=== PATIENT | female | born 1970 | race Native Hawaiian/Other Pacific Islander ===

== ENCOUNTER 2017-02-04 11:00 | Inpatient (IN) | payer OTHER ==
[2017-02-03 14:29] VITALS: BMI 21.7
[2017-02-04] MEDS ORDERED: cefOXitin IV 1 gm in Dextrose 1 GM/50 ML BAG IVPB ONE (11:57)
[2017-02-04] MEDS ORDERED: Lactated Ringer's 1,000 ML IV ONE ×5 (12:00→18:00)
[2017-02-04] MEDS ORDERED: Propofol 10 mg/ml Inj (20 ML) ONE (12:01)
[2017-02-04] MEDS ORDERED: Midazolam 2 MG/2 ML VIAL ONE (12:01)
[2017-02-04] MEDS ORDERED: ePHEDrine 50 mg/ml Inj ONE (12:21)
[2017-02-04] MEDS ORDERED: Neostigmine Methylsulfate 3mg/3ml Syringe IV ONE (13:31)
[2017-02-04] MEDS ORDERED: Oxycodone/Acetaminophen 5/325 mg Tab PO PRN (13:35)
--- NOTE | 2017-02-04 13:40 | PCM.SURG1 ---
Surgeon's Initial Post Op Note - Surgeon's Notes Surgeon: dr friedman Tip Printer: dr zaidi Type of Anesthesia: General Endo Anesthesia Administered By: dr kamara Pre-Operative Diagnosis: 46 yr pelvic pain/menoometorrhagia/adnemyosis Operative Findings: see the op reoprt Post-Operative Diagnosis: same Operation Performed: cole/b/l salpingectomy Specimen/Specimens Removed: uterus. cervix. b/l tubes Estimated Blood Loss: EBL {In ML}: 200 Blood Products Given: N/A Drains Used: No Drains Post-Op Condition: Good Date of Surgery/Procedure: 02/04/17 Time of Surgery/Procedure: 13:45
[2017-02-04] MEDS ORDERED: cefOXitin IV 1 gm in Dextrose 1 GM/50 ML BAG IVPB SCH (13:45)
[2017-02-04] MEDS ORDERED: Lactated Ringer's 1,000 ML IV SCH (13:45)
[2017-02-04] MEDS ORDERED: Morphine Monoject Barrel PCA 1mg/ml IV PRN (13:53)
[2017-02-04] MEDS ORDERED: HYDROmorphone 0.5 mg/0.5 ml ISec IVP PRN (14:00)
[2017-02-04] MEDS ORDERED: HYDROmorphone 0.5 mg/0.5 ml ISec IVP ONE ×2 (14:59→15:42)
[2017-02-04] MEDS ORDERED: HYDROmorphone 0.5 mg/0.5 ml ISec ONE (15:42)
[2017-02-04] MEDS: Simethicone 80 mg Chewtab PO SCH (18:29)
[2017-02-04] MEDS: cefOXitin IV 1 gm in Dextrose 1 GM/50 ML BAG IVPB SCH (20:50)
[2017-02-05 00:08] VITALS: RESP 20
[2017-02-05] MEDS: Simethicone 80 mg Chewtab PO SCH ×5 (01:29→22:48)
[2017-02-05] MEDS: cefOXitin IV 1 gm in Dextrose 1 GM/50 ML BAG IVPB SCH ×2 (04:26→14:20)
[2017-02-05] MEDS: Oxycodone/Acetaminophen 5/325 mg Tab PO PRN ×4 (05:43→22:50)
[2017-02-05 08:10] LABS: MEAN CELL VOLUME 91.8 fL (81.0-99.0); MEAN CORPUSCULAR HEMOGLOBIN 30.2 pg (27.0-31.0); MEAN CORPUSCULAR HGB CONC 32.9 g/dL (33.0-37.0); MEAN PLATELET VOLUME 10.1 fL (7.2-11.7); RED CELL DISTRIBUTION WIDTH 14.5 % (11.5-14.5); WHITE BLOOD COUNT 15.9 K/uL (4.8-10.8)
[2017-02-05 08:44] LABS: CHLORIDE 102 mmol/L (98-107); POTASSIUM 3.9 mmol/L (3.6-5.2); SODIUM 132 mmol/L (132-148)
[2017-02-05 08:46] LABS: ALKALINE PHOSPHATASE 31 U/L (38-126); AST/SGOT 24 U/L (14-36); BILIRUBIN,TOTAL 0.5 mg/dL (0.2-1.3); CARBON DIOXIDE 22 mmol/L (22-30); GFR AFRICAN-AMERICAN > 60; TOTAL PROTEIN 5.9 g/dL (6.3-8.3)
[2017-02-05 08:47] LABS: ALT/SGPT 27 U/L (9-52); BLOOD UREA NITROGEN 11 mg/dL (7-17); CALCIUM 7.3 mg/dl (8.6-10.4); GLUCOSE,RANDOM 105 mg/dL (65-105)
--- NOTE | 2017-02-05 11:30 | CP.PCM.PN ---
Subjective - Date & Time of Evaluation Date of Evaluation: 02/05/17 Time of Evaluation: 11:30 - Subjective Subjective: pt was seen at bed side, pain under control, no n/v, tolerating nliquid deit, waiting void pod#1 s/p total hystrectomy reg deit cbc cont pain mamnagement encourage ambulation cont post op care Objective - Vital Signs/Intake and Output Vital Signs (last 24 hours): Temp Pulse Resp BP Pulse Ox 97.9 F 78 20 131/68 97 02/05/17 00:00 02/05/17 00:00 02/05/17 00:00 02/05/17 00:00 02/05/17 00:00 Intake and Output: 02/05/17 02/05/17 06:59 18:59 Output Total 1150 Balance -1150 - Medications Medications: Current Medications Docusate Sodium (Colace) 100 mg PO BID [facility] Last Admin: 02/05/17 10:30 Dose: 100 mg Lactated Ringer's (Lactated Ringer's) 1,000 mls @ 125 mls/hr IV .Q8H [facility] Cefoxitin Sodium (Mefoxin Iv 1 Gm Duplex) 1 gm in 50 mls @ 50 mls/hr IVPB Q8H [facility] Stop: 02/05/17 12:59 Last Admin: 02/05/17 04:26 Dose: 50 mls/hr Ibuprofen (Motrin Tab) 600 mg PO Q4 PRN PRN Reason: Pain, Mild (1-3) Metoclopramide HCl (Reglan) 10 mg IVP ONCE PRN PRN Reason: Nausea/Vomiting Morphine Sulfate/Sodium Chloride (Morphine Abstract Maker Monoject Barrel) 6 mg IV Q4H PRN ; Protocol PRN Reason: Pain, moderate (4-7) Last Admin: 02/04/17 18:00 Dose: 6 mg Oxycodone/Acetaminophen (Percocet 5/325 Mg Tab) 2 tab PO Q4H PRN PRN Reason: Pain, severe (8-10) Stop: 02/07/17 13:36 Last Admin: 02/05/17 10:36 Dose: 2 tab Oxycodone/Acetaminophen (Percocet 5/325 Mg Tab) 1 tab PO Q4H PRN PRN Reason: Pain, moderate (4-7) Stop: 02/07/17 13:36 Simethicone (Mylicon Chew Tab) 80 mg PO QID JM Last Admin: 02/05/17 10:30 Dose: 80 mg - Labs Labs: 02/05/17 07:52 02/05/17 07:52 Assessment and Plan - Assessment and Plan (Free Text) Assessment: 46yr s/p total hystrectomy/bl/salpingectomy Plan: reg deit cbc cont pain mamnagement encourage ambulation cont post op care
[2017-02-05] MEDS ORDERED: cefOXitin IV 1 gm in Dextrose 1 GM/50 ML BAG IVPB SCH (15:00)
[2017-02-06 01:28] VITALS: BP 112/65
[2017-02-06] MEDS: Oxycodone/Acetaminophen 5/325 mg Tab PO PRN (06:46)
[2017-02-06 08:41] VITALS: PULSE 75; TEMP 97.2; O2SAT 99
[2017-02-06] MEDS: Simethicone 80 mg Chewtab PO SCH (09:28)
--- NOTE | 2017-02-06 09:45 | CP.PCM.PN ---
Subjective - Date & Time of Evaluation Date of Evaluation: 02/06/17 Time of Evaluation: 09:41 - Subjective Subjective: 46yo female s/p BARRINGTON + B/L Salpingectomy, POD #2, reports feeling well , tolerating meals po, ambulating, passed some gas and adequate pain control. Pt would be discharged home as per Dr corona and f/u with wound chec on . Pt is asked to return to the nearest ER or to Dr Sneed in the event of any problems. A script for percocet was given to the patient. Objective - Vital Signs/Intake and Output Vital Signs (last 24 hours): Temp Pulse Resp BP Pulse Ox 97.2 F L 75 20 112/65 99 02/06/17 08:39 02/06/17 08:39 02/06/17 08:39 02/06/17 00:00 02/06/17 08:39 Intake and Output: 02/06/17 02/06/17 06:59 18:59 Intake Total 550 Balance 550 - Medications Medications: Current Medications Docusate Sodium (Colace) 100 mg PO BID JM Last Admin: 02/06/17 09:29 Dose: 100 mg Lactated Ringer's (Lactated Ringer's) 1,000 mls @ 125 mls/hr IV .Q8H [facility] Ibuprofen (Motrin Tab) 600 mg PO Q4 PRN PRN Reason: Pain, Mild (1-3) Last Admin: 02/06/17 02:55 Dose: 600 mg Metoclopramide HCl (Reglan) 10 mg IVP ONCE PRN PRN Reason: Nausea/Vomiting Morphine Sulfate/Sodium Chloride (Morphine [employer] Sawyer Monoject Barrel) 6 mg IV Q4H PRN ; Protocol PRN Reason: Pain, moderate (4-7) Last Admin: 02/04/17 18:00 Dose: 6 mg Oxycodone/Acetaminophen (Percocet 5/325 Mg Tab) 2 tab PO Q4H PRN PRN Reason: Pain, severe (8-10) Stop: 02/07/17 13:36 Last Admin: 02/06/17 06:46 Dose: 2 tab Oxycodone/Acetaminophen (Percocet 5/325 Mg Tab) 1 tab PO Q4H PRN PRN Reason: Pain, moderate (4-7) Stop: 02/07/17 13:36 Simethicone (Mylicon Chew Tab) 80 mg PO QID JM Last Admin: 02/06/17 09:28 Dose: 80 mg - Labs Labs: 02/05/17 07:52 02/05/17 07:52 - Constitutional Appears: Well - Respiratory Exam Respiratory Exam: Clear to Ausculation Bilateral, NORMAL BREATHING PATTERN - Cardiovascular Exam Cardiovascular Exam: REGULAR RHYTHM, RRR - GI/Abdominal Exam GI & Abdominal Exam: Normal Bowel Sounds Additional comments: Incision: Clean and dry, no abnormal discharge. - Extremities Exam Extremities Exam: Normal Inspection - Neurological Exam Neurological Exam: Oriented x3 - Skin Skin Exam: Normal Color Assessment and Plan - Assessment and Plan (Free Text) Assessment: s/p BARRINGTON + Bilateral salpingectomy Plan: D/C Home as per DR Sneed. F/U with Dr Sneed for wound check Pelvic rest for 6 weeks.
--- NOTE | 2017-02-15 18:32 | OP ---
PROCEDURE DATE: 02/04/2017 PREOPERATIVE DIAGNOSIS: A 46-year-old with pelvic pain, menometrorrhagia, adenomyosis. POSTOPERATIVE DIAGNOSIS: A 46-year-old with pelvic pain, menometrorrhagia, adenomyosis. SURGEON: Scooby Sneed MD INDUSTRIAL PRODUCTION MANAGER SURGEON: Dr. Gaona who was present throughout the surgery for retraction, exposure, and hel ping with assistance with the hysterectomy. OPERATION PERFORMED: Total abdominal hysterectomy and bilateral salpingectomy. The specimen removed was uterus, cervix, and bilateral tubes. ESTIMATED BLOOD LOSS: 200. DATE OF SURGERY: 02/04/2017 ANESTHESIA: General anesthesia. ANESTHESIOLOGIST: Dr. Mooney. PROCEDURE: After informed consent was obtained, the patient was brought to the operating room, place d on the table where general anesthesia was given. When anesthesia was found, she was prepped and dr diazed in normal sterile fashion. Snell catheter was inserted in sterile condition. 2 cm above the pu bic bone, a skin incision was made with a knife, the subcutaneous with a Bovie. The fascia was excis ed. We went into the abdominal cavity; then after that, the uterus was exteriorized, both ovaries __ ___ looked normal. After that, the round ligament on the left side was taken with 2 Heaneys and it w as cut with the LigaSure. Then, the window was made in the broad ligament. After that, the left stockbridge roovarian ligament was taken with the 2 Heaneys; it was cut and tied with 3-0 Vicryl. After that, th e bladder flap was created on the left side and then the posterior peritoneum was exteriorized too. After that, the same thing was done on the right side. The right uteroovarian ligament and the right round ligament was taken and a window was made and bladder flap was made. After that, the left uter ine artery was skeletonized and then the Madeline was placed and the 2 Heaneys were placed. After that , it was placed at the lower uterine segment above the internal cervical os away from the ureter. Af ter that, it was cut and it was suture ligated with 2-0 Vicryl. Then 2 sutures were placed at the sa me cut. Then the same thing was done on the right side. It was skeletonized and was taken delvin y from the ureter. After that, the bladder was pulled down more. After that, the Heaneys were place d and the cardinal ligament was taken on the left side. It was cut and suture ligated and the same t ruy was done on the right side. After that, the uterosacral ligament was taken with the Heaneys. I t was cut and held on the Kellys. After that, the lower part of the cervix external os was visualize d and the 2 Heaneys were placed on both the sides and was cut and then the incision was made with a k nife and it was cut on both sides using curved [place] scissors and the whole uterus and the tubes were taken. Before that it was taken, bilateral salpingectomy was performed using LigaSure. It was sent to pathology. After that, the stump of the vagina was held with Allises. It was tied with interrupt ed 2-0 Vicryl. After that, the uterosacral ligaments were tied to the stump and was lifted up. After that, a lot of irrigation was done and found to be hemostatic. The ovaries looked normal. A lot of irrigation was done and Interceed was placed. After that, all the laps were removed from the belly. It was not hemostatic and not bleeding. After that, the peritoneum was closed with 2-0 Vicr yl in nonlocking fashion, the muscle was closed with 2-0 Vicryl nonlocking fashion, the fascia was cl osed using 1 Vicryl nonlocking fashion, , and the skin was closed using 3-0 Monocryl. The patie nt tolerated the procedure. Laps and instruments correct x 2. Scooby Sneed MD cc: [id number] TT: 02/15/2017 18:32:20 daren
== END 2017-02-06 11:15 | disposition home or self-care (01) | DRG 359 ==
LOC: C.9S 11:09 → C.4M 16:46
PROVIDERS: ADMIT Obstetrics & Gynecology; ATTEND Obstetrics & Gynecology
PROC: 0UT70ZZ Resection of Bilateral Fallopian Tubes, Open Approach (ICD-10-PCS; 2017-02-04)
PROC: 0UTC0ZZ Resection of Cervix, Open Approach (ICD-10-PCS; 2017-02-04)
PROC: 0UT90ZZ Resection of Uterus, Open Approach (ICD-10-PCS; principal; 2017-02-04 11:00)
DX: D25.9 Leiomyoma of uterus, unspecified (principal); N80.0 Endometriosis of uterus; N83.8 Other noninflammatory disorders of ovary, fallopian tube and broad ligament

== ENCOUNTER 2017-02-24 05:57 | Inpatient (IN) | payer MEDICAID, OTHER ==
[2017-02-24 05:57] VITALS: BMI 21.7
--- NOTE | 2017-02-24 05:58 | C.PDOC ---
History Of Present Illness Pt c/o urinary incontinence after having BARRINGTON a few weeks ago. Some vaginal discomfort. No f/c/n/v Time Seen by Provider: 02/24/17 05:58 History/Exam Limitations: no limitations Onset/Duration Of Symptoms: Days Current Symptoms Are (Timing): Still Present Severity: Moderate Pain Scale Rating Of: 4 Quality Of Discomfort: Dull Associated Symptoms: denies: Fever, Chills Alleviating Factors: None Recent travel outside of the [place]: No Additional History Per: Patient Abnormal Vaginal Bleeding: No Past Medical History Reviewed: Historical Data, Nursing Documentation, Vital Signs Vital Signs: Last Vital Signs Temp 97.4 F L 02/24/17 06:02 Pulse 93 H 02/24/17 06:02 Resp 18 02/24/17 06:02 BP 112/72 02/24/17 06:02 Pulse Ox 99 02/24/17 06:18 - [facility] Procedures RESECTION OF BILATERAL FALLOPIAN TUBES, OPEN APPROACH (02/04/17) RESECTION OF CERVIX, OPEN APPROACH (02/04/17) RESECTION OF UTERUS, OPEN APPROACH (02/04/17) Family History: States: No Known Family Hx Review Of Systems Constitutional: Negative for: Fever, Chills Eyes: Negative for: Redness ENT: Negative for: Throat Pain Cardiovascular: Negative for: Chest Pain, Palpitations Respiratory: Positive for: Shortness of Breath Gastrointestinal: Positive for: Abdominal Pain. Negative for: Nausea, Vomiting Genitourinary: Positive for: Incontinence, Pelvic Pain Musculoskeletal: Negative for: Neck Pain Skin: Negative for: Rash, Lesions, Jaundice Neurological: Negative for: Weakness Psych: Negative for: Anxiety Physical Exam - Physical Exam Appears: Non-toxic, No Acute Distress Skin: Warm, Dry Head: Normacephalic Oral Mucosa: Moist Neck: Supple Chest: Symmetrical Cardiovascular: Rhythm Regular Respiratory: No Rales, No Rhonchi, No Wheezing Gastrointestinal/Abdominal: Soft, No Tenderness, No Distention Back: Normal Inspection, No CVA Tenderness Extremity: Normal ROM Extremity: Bilateral: Atraumatic Neurological/Psych: Oriented x3, Normal Speech, Normal Cognition Gait: Steady ED Course And Treatment O2 Sat by Pulse Oximetry: 99 Pulse Ox Interpretation: Normal Disposition Counseled Patient/Family Regarding: Studies Performed, Diagnosis - Disposition Disposition Time: 05:58 Condition: FAIR - Clinical Impression Clinical Impression: Urinary incontinence Physician Patient Turnover Patient Signed Over To: Bia Aguila Handoff Comments: pending labs and dispostion
[2017-02-24] MEDS ORDERED: Sodium Chloride 0.9% 1,000 ML IV ONE (06:11)
[2017-02-24 06:47] LABS: BASO % 0.1 % (0.0-2.0); EOS # 0.1 K/uL (0.0-0.7); EOS % 0.7 % (0.0-4.0); HEMATOCRIT 36.3 % (34.0-47.0); LYMPH % 6.5 % (20.0-40.0); MEAN CORPUSCULAR HEMOGLOBIN 29.7 pg (27.0-31.0); MEAN CORPUSCULAR HGB CONC 33.4 g/dL (33.0-37.0); MEAN PLATELET VOLUME 9.5 fL (7.2-11.7); MONO # 0.6 K/uL (0.0-0.8); MONO % 4.3 % (0.0-10.0); PLATELET COUNT 142 K/uL (130-400); RED CELL DISTRIBUTION WIDTH 13.7 % (11.5-14.5)
[2017-02-24 06:49] LABS: CHLORIDE 99 mmol/L (98-107)
[2017-02-24 06:50] LABS: SODIUM 136 mmol/L (132-148)
[2017-02-24 06:52] LABS: ALB/GLOB RATIO 1.1 (1.0-2.1); ALKALINE PHOSPHATASE 77 U/L (38-126); AST/SGOT 19 U/L (14-36); BILIRUBIN,TOTAL 0.7 mg/dL (0.2-1.3); BLOOD UREA NITROGEN 16 mg/dL (7-17); CARBON DIOXIDE 24 mmol/L (22-30); GFR AFRICAN-AMERICAN > 60; TOTAL PROTEIN 7.4 g/dL (6.3-8.3)
[2017-02-24 06:53] LABS: ALT/SGPT 19 U/L (9-52); CALCIUM 9.1 mg/dl (8.6-10.4); GLUCOSE,RANDOM 187 mg/dL (65-105)
[2017-02-24 06:56] LABS: POTASSIUM 3.8 mmol/L (3.6-5.2)
[2017-02-24 07:00] LABS: INR 1.2
[2017-02-24 07:26] LABS: RBC URINE 25 /hpf (0-3); URINE BACTERIA RARE (<OCC); URINE BILIRUBIN NEGATIVE (NEGATIVE); URINE BLOOD 2+ (NEGATIVE); URINE COLOR Amber (YELLOW); URINE GLUCOSE (UA) NORMAL (Normal); URINE KETONE NEGATIVE (NEGATIVE); URINE LEUKOCYTE ESTERASE 3+ Leu/uL (Negative); URINE PROTEIN 2+ mg/dL (NEGATIVE); URINE UROBILINOGEN NORMAL mg/dL (0.2-1.0); WBC URINE 625 /hpf (0-5)
[2017-02-24] MEDS ORDERED: Iodixanol 320 MG/ML 100 ML BOTTLE IV ONE (07:37)
[2017-02-24] MEDS ORDERED: cefTRIAXone IV 1 gm in Dextros 50 ML IV ONE (07:52)
[2017-02-24] MEDS ORDERED: cefTRIAXone 2 GM in Sodium Chloride 0.9% 100 ML IVPB STA (07:58)
[2017-02-24 08:17] LABS: NEUTROPHIL 83 % (50-75); TOTAL CELLS COUNTED 100
[2017-02-24] MEDS ORDERED: Methylene Blue 10 mg/ml (1ml) Inj ONE (08:31)
--- NOTE | 2017-02-24 09:32 | CT ---
PROCEDURE: CT Abdomen and Pelvis with and without intravenous contrast HISTORY: poss uretero vaginal fistula COMPARISON: None. TECHNIQUE: Axial images of the abdomen were obtained in the pre contrast, portal venous and delayed phases of enhancement. Coronal and sagittal reformats were generated. Contrast dose: 100 mL Visipaque 320 Radiation dose: Total exam DLP = 885.46 mGy-cm. This CT exam was performed using one or more of the following dose reduction techniques: Automated exposure control, adjustment of the mA and/or kV according to patient size, and/or use of iterative reconstruction technique. FINDINGS: LOWER THORAX: Linear scar/ atelectasis in left lower lobe. LIVER: Unremarkable. No gross lesion or ductal dilatation. GALLBLADDER AND BILE DUCTS: Unremarkable. PANCREAS: Unremarkable. No gross lesion or ductal dilatation. SPLEEN: Unremarkable. ADRENALS: Unremarkable. No mass. KIDNEYS AND URETERS: Mild left hydronephrosis. Prolonged cortical phase of enhancement relative to right kidney consistent with urinary tract obstruction. Mild dilatation of left ureter. 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 On delayed images, contrast material is seen within the vagina. The left ureter passes very close to the left fornix of the vagina but no direct communication is definitely established. The distal aspect of the ureter extending to the urinary bladder is never filled with contrast material on this examination. The right urinary collecting system is unremarkable. The right ureter is filled with contrast material throughout its course and demonstrates no filling defect. The right pelvicaliceal system is unremarkable. There is no renal calculus. There is a 5 mm right upper pole renal cortical cyst. There is no left renal mass. VASCULATURE: Unremarkable. No aortic aneurysm. BOWEL: Unremarkable. No obstruction. No gross mural thickening. APPENDIX: Normal appendix. PERITONEUM: Unremarkable. No free fluid. No free air. LYMPH NODES: Unremarkable. No enlarged lymph nodes. BLADDER: There is diffuse mural thickening of the urinary bladder suspicious for cystitis. Please correlate with urinalysis. A Snell catheter balloon is seen within the urinary bladder lumen. REPRODUCTIVE: Status post hysterectomy. BONES: No acute fracture. OTHER FINDINGS: None. 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 Definite communication between the left ureter ureter and vagina is not established though they are in close proximity and the most distal aspect of the left ureter is not enhanced. Mild left hydroureteronephrosis with prolonged cortical phase of enhancement on the left side. Diffuse mural thickening of urinary bladder suspicious for cystitis. Please correlate with laboratory evaluation. Snell catheter noted. .
--- NOTE | 2017-02-24 13:11 | CP.PCM.HP ---
<Viktoria Dockery - Last Filed: 02/24/17 13:42> History of Present Illness - History of Present Illness History of Present Illness: Medicine Note for Dr. Encarnacion CC: leaking urine HPI: 46F with no PMHx presents to the ED s/p hysterectomy (02/04) complaining of leaking urine. This leaking started this past Wednesday but over the next few days it became more profuse. Admitted to dysuria and fevers. Patient went to PMD and was sent to the ED for evaluation. Patient was seen by RETAIL DEPARTMENT MANAGER, Urology was consulted. Denied chills, headache, chest pain, SOB, abdominal pain, hematuria, vaginal bleeding, discharge, or n/v/d/c. PMHx: Denied PSHx: Hysterectomy Meds: Denied All: NKDA SHx: Denied tobacco, alcohol, or illicit drug use FHx: Unremarkable Present on Admission - Present on Admission Any Indicators Present on Admission: No Past Patient History - Past Medical History & Family History Past Medical History?: No - Past Social History Smoking Status: Never Smoked - GENITOURINARY/GYNECOLOGICAL Hx Genitourinary Disorders: Yes Other/Comment: Fibroid Uterus - PSYCHIATRIC Hx Substance Use: No - SURGICAL HISTORY Hx Surgeries: No Hx Hysterectomy: Yes (02/04/2017) - ANESTHESIA Hx Anesthesia: Yes Meds Allergies/Adverse Reactions: Allergies Allergy/AdvReac Type Severity Reaction Status Date / Time No Known Allergies Allergy Verified 02/24/17 08:57 Physical Exam - Constitutional Appears: No Acute Distress - Head Exam Head Exam: NORMAL INSPECTION, NORMOCEPHALIC - ENT Exam ENT Exam: Mucous Membranes Moist - Respiratory Exam Respiratory Exam: Clear to Auscultation Bilateral, NORMAL BREATHING PATTERN. absent: Wheezes - Cardiovascular Exam Cardiovascular Exam: REGULAR RHYTHM - GI/Abdominal Exam GI & Abdominal Exam: Normal Bowel Sounds, Soft. absent: Distended, Tenderness - Extremities Exam Extremities exam: Positive for: normal inspection, pedal pulses present. Negative for: pedal edema, tenderness - Neurological Exam Neurological exam: Alert, Oriented x3 - Skin Skin Exam: Dry, Intact, Normal Color, Warm Results - Vital Signs Recent Vital Signs: Last Vital Signs Temp 99.1 F 02/24/17 12:15 Pulse 92 H 02/24/17 12:15 Resp 18 02/24/17 12:15 BP 91/57 L 02/24/17 12:15 Pulse Ox 97 02/24/17 12:15 - Labs Result Diagrams: 02/24/17 06:35 02/24/17 06:35 Assessment & Plan - Assessment and Plan (Free Text) Plan: S/P Hysterectomy (TAHBSO) * Due to menorrhagia on 02/04/17 * Pathology - benign * Development of left ureter vaginal fistula, left hydronephrosis * Urology consulted - Dr. Olivo - help appreciated UTI * UA: +LE, + Nitrates * Rocephin 1 gram IVP BID * F/U Urine Cultures Prophylaxis * GI PPX: Protonix 40mg PO daily * DVT PPX: Heparin 5000u SC Q12H * Regular (VEGAN diet) * NPO past midnight for possible cystoscopy tomorrow DW Dr. Encarnacion, Nahed MEYER, PGY-1 <Wilmer Encarnacion - Last Filed: 02/25/17 14:18> Results - Vital Signs Recent Vital Signs: Last Vital Signs Temp 98.1 F 02/25/17 07:45 Pulse 83 02/25/17 07:45 Resp 20 02/25/17 07:45 BP 96/61 L 02/25/17 07:45 Pulse Ox 97 02/25/17 07:45 - Labs Result Diagrams: 02/25/17 07:37 02/25/17 07:37 Labs: Laboratory Results - last 24 hr 02/25/17 02/25/17 02/25/17 07:37 07:37 07:37 WBC 15.1 H RBC 3.83 Hgb 11.3 Hct 34.0 MCV 88.9 MCH 29.5 MCHC 33.3 RDW 13.7 Plt Count 159 MPV 9.1 Neut % (Auto) 85.6 H Lymph % (Auto) 9.6 L [place] % (Auto) 4.3 Eos % (Auto) 0.4 Baso % (Auto) 0.1 Neut # 12.9 H Lymph # 1.5 [place] # 0.6 Eos # 0.1 Baso # 0.0 Neutrophils % (Manual) 91 H Lymphocytes % (Manual) 5 L Monocytes % (Manual) 4 Platelet Estimate Normal RBC Morphology Normal Sodium 138 Potassium 3.7 Chloride 102 Carbon Dioxide 26 Anion Gap 14 BUN 10 Creatinine 0.6 L Est GFR ( Amer) > 60 Est GFR (Non-Af Amer) > 60 Random Glucose 113 H Hemoglobin A1c 5.8 Calcium 8.1 L Total Bilirubin 0.5 AST 15 ALT 17 Alkaline Phosphatase 71 Total Protein 6.9 Albumin 3.4 L Globulin 3.5 Albumin/Globulin Ratio 1.0 Attending/Attestation - Attestation I have personally seen and examined this patient.: Yes I have fully participated in the care of the patient.: Yes I have reviewed all pertinent clinical information: Yes Notes (Text): 02/25/17 14:15 This is a 46-year-old female who just recently as documented above the resident note underwent a total abdominal hysterectomy with removal of the ovaries as well. This was done here [facility]. She returned to the ER after he was noted that she's been having some period of excessive urinary leakage. She saw her primary medical doctor who promptly sent the patient to the emergency room. In the emergency room she had imaging done which showed that she had developed a ureter - vaginal fistula. She is currently on IV antibody except this time, his UA did suggest that she had a UTI as well. Her currently pending on the cultures at this time. The patient will need to have urology evaluation.
[2017-02-24] MEDS: Sodium Chloride 0.9% 1,000 ML IV SCH (16:30)
--- NOTE | 2017-02-24 17:17 | CP.PCM.CON ---
History of Present Illness - History of Present Illness History of Present Illness: 46 yr s/p cole on 02/04/17 came to the office yesertday c/o leakege of urine continously since monday 02/19. pt states she was good before. all of the sudden urine started coming. pt has been using pads/pampers for urine leakge,no dysuria.no pain.pt felt warm.no fever, no flank pain. obhx 2 x pmh denies med none all nkda psh cole on 02/04 soch denies sse fluid/urine in the vagina pelvic exam no openinng visualised ct scan with iv contrast possible left urteralvaginal fistula.cystitis in the bladder. no direct communication visualise between vagina and ureter ua +nitrates 3+ le temp 103.2f Dr Hodges/dR Munguia aND dR Ahmadi CALLED. CASE DISCUSSED.recommed to admit for iv antibiotics. once fevr control do cystocopy and retrograde pylogram possible stent.if fever not improved will do percutaneous nephrostomy. Review of Systems - Genitourinary Genitourinary: As Per HPI Past Patient History - Past Medical History & Family History Past Medical History?: No - Past Social History Smoking Status: Never Smoked - GENITOURINARY/GYNECOLOGICAL Hx Genitourinary Disorders: Yes Other/Comment: Fibroid Uterus - PSYCHIATRIC Hx Substance Use: No - SURGICAL HISTORY Hx Surgeries: No Hx Hysterectomy: Yes (02/04/2017) - ANESTHESIA Hx Anesthesia: Yes Meds Allergies/Adverse Reactions: Allergies Allergy/AdvReac Type Severity Reaction Status Date / Time No Known Allergies Allergy Verified 02/24/17 08:57 - Medications Medications: Current Medications Acetaminophen (Tylenol 325mg Tab) 650 mg PO Q6 PRN PRN Reason: Fever >100.4 F Acetaminophen (Tylenol 325mg Tab) 650 mg PO Q6 PRN PRN Reason: Pain, Mild (1-3) Docusate Sodium (Colace) 100 mg PO DAILY [facility] Heparin Sodium (Porcine) (Heparin) 5,000 units SC Q12 JM Sodium Chloride (Sodium Chloride 0.9%) 1,000 mls @ 100 mls/hr IV .Q10H JM Ceftriaxone Sodium 1 gm/ (Sodium Chloride) 100 mls @ 100 mls/hr IVPB BID JM Ketorolac Tromethamine (Toradol) 30 mg IVP Q6 PRN PRN Reason: Pain, moderate (4-7) Morphine Sulfate (Morphine) 1 mg IVP Q4 PRN PRN Reason: Pain, severe (8-10) Ondansetron HCl (Zofran Inj) 4 mg IVP Q6H PRN PRN Reason: Nausea/Vomiting Pantoprazole Sodium (Protonix Inj) 40 mg IVP DAILY MJ Physical Exam - Constitutional Appears: Other (distress) - Exam External exam: NORMAL EXTERNAL EXAM Speculum exam: NORMAL SPECULUM EXAM (with urine in the vagina. cuff intact) Results - Vital Signs Recent Vital Signs: Last Vital Signs Temp 99.4 F 02/24/17 16:04 Pulse 87 02/24/17 16:04 Resp 20 02/24/17 16:04 BP 112/67 02/24/17 16:04 Pulse Ox 99 02/24/17 16:04 - Labs Result Diagrams: 02/27/17 08:26 02/27/17 08:26 Assessment & Plan - Assessment and Plan (Free Text) Assessment: 46 yr s/p cole on 02/04 with possible uteralvaginal fistula/uti/fever Plan: Plan Admit in medicine for Antibiotics. blood culture urine culture rocephin. Urology consult called. Dr Munguia. poss IR Consult if needed Will contine follow up It was explained to the pateint and family in detail . Understands and agrees. - Date & Time Date: 02/24/17 Time: 10:00
[2017-02-25] MEDS: Sodium Chloride 0.9% 1,000 ML IV SCH ×3 (02:30→21:56)
--- NOTE | 2017-02-25 07:24 | CP.PCM.PN ---
Addendum entered and electronically signed by Viktoria Dockery DO 02/25/17 13:26 : Correction: Dr. Gabi Mata is the urologist on the case. Plan is for cystoscopy tomorrow 1pm. Original Note: <Viktoria Dockery - Last Filed: 02/25/17 12:55> Subjective - Date & Time of Evaluation Date of Evaluation: 02/25/17 Time of Evaluation: 07:00 - Subjective Subjective: Medicine Note for Dr. Encarnacion, Patient was seen and examined at bedside. Patient reports she continues to have abdominal pain, patient instructed to page nurse when in pain to receive pain medications pending on the severity of her pain. Plan is for cytoscopy tomorrow. Denied fever, chills, headache, chest pain, n/v/d/c, or urinary symptoms. Objective - Vital Signs/Intake and Output Vital Signs (last 24 hours): Temp Pulse Resp BP Pulse Ox 99.5 F 81 20 104/63 97 02/24/17 23:30 02/24/17 23:30 02/24/17 23:30 02/24/17 23:30 02/24/17 23:30 Intake and Output: 02/25/17 02/25/17 06:59 18:59 Intake Total 1600 Balance 1600 - Medications Medications: Current Medications Acetaminophen (Tylenol 325mg Tab) 650 mg PO Q6 PRN PRN Reason: Fever >100.4 F Last Admin: 02/24/17 18:05 Dose: 650 mg Acetaminophen (Tylenol 325mg Tab) 650 mg PO Q6 PRN PRN Reason: Pain, Mild (1-3) Docusate Sodium (Colace) 100 mg PO DAILY [facility] Heparin Sodium (Porcine) (Heparin) 5,000 units SC Q12 [facility] Last Admin: 02/24/17 21:03 Dose: 5,000 units Sodium Chloride (Sodium Chloride 0.9%) 1,000 mls @ 100 mls/hr IV .Q10H [facility] Last Admin: 02/25/17 02:30 Dose: 100 mls/hr Ceftriaxone Sodium 1 gm/ (Sodium Chloride) 100 mls @ 100 mls/hr IVPB BID [facility] Last Admin: 02/24/17 18:09 Dose: 100 mls/hr Ketorolac Tromethamine (Toradol) 30 mg IVP Q6 PRN PRN Reason: Pain, moderate (4-7) Morphine Sulfate (Morphine) 1 mg IVP Q4 PRN PRN Reason: Pain, severe (8-10) Ondansetron HCl (Zofran Inj) 4 mg IVP Q6H PRN PRN Reason: Nausea/Vomiting Pantoprazole Sodium (Protonix Inj) 40 mg IVP DAILY [facility] - Labs Labs: PT 13.4 SECONDS (9.7-12.2) H 02/24/17 06:35 INR 1.2 02/24/17 06:35 APTT 28 SECONDS (21-34) 02/24/17 06:35 - Constitutional Appears: No Acute Distress - Head Exam Head Exam: NORMAL INSPECTION, NORMOCEPHALIC - Respiratory Exam Respiratory Exam: Clear to Ausculation Bilateral, NORMAL BREATHING PATTERN - Cardiovascular Exam Cardiovascular Exam: REGULAR RHYTHM, RRR, +S1, +S2 - GI/Abdominal Exam GI & Abdominal Exam: Soft, Tenderness, Normal Bowel Sounds. absent: Distended - Extremities Exam Extremities Exam: Normal Inspection. absent: Pedal Edema, Tenderness - Neurological Exam Neurological Exam: Alert, Awake, Oriented x3 - Skin Skin Exam: Dry, Intact, Normal Color, Warm Assessment and Plan - Assessment and Plan (Free Text) Plan: S/P Hysterectomy (TAHBSO) * Due to menorrhagia on 02/04/17 * Pathology - benign * CT Ab&P: Development of left ureter vaginal fistula, left hydronephrosis * Tylenol, toradol, and morphine PRN for pain * Urology consulted - Dr. Olivo - patient to be kept NPO tonight for cystoscopy tomorrow. UTI * UA: +LE, + Nitrates * Rocephin 1 gram IVP BID * NS @ 100cc/hr * F/U Urine Cultures Prophylaxis * GI PPX: Protonix 40mg PO daily * DVT PPX: Heparin 5000u SC Q12H * Regular (VEGAN diet) * NPO past midnight for cystoscopy tomorrow DW Nahed March DO, PGY-1 <Wilmer Encarnacion - Last Filed: 02/25/17 15:08> Objective - Vital Signs/Intake and Output Vital Signs (last 24 hours): Temp Pulse Resp BP Pulse Ox 98.1 F 83 20 96/61 L 97 02/25/17 07:45 02/25/17 07:45 02/25/17 07:45 02/25/17 07:45 02/25/17 07:45 Intake and Output: 02/25/17 02/25/17 06:59 18:59 Intake Total 1600 Balance 1600 - Medications Medications: Current Medications Acetaminophen (Tylenol 325mg Tab) 650 mg PO Q6 PRN PRN Reason: Fever >100.4 F Last Admin: 02/24/17 18:05 Dose: 650 mg Acetaminophen (Tylenol 325mg Tab) 650 mg PO Q6 PRN PRN Reason: Pain, Mild (1-3) Docusate Sodium (Colace) 100 mg PO DAILY [facility] Last Admin: 02/25/17 10:40 Dose: 100 mg Heparin Sodium (Porcine) (Heparin) 5,000 units SC Q12 [facility] Last Admin: 02/25/17 10:40 Dose: 5,000 units Sodium Chloride (Sodium Chloride 0.9%) 1,000 mls @ 100 mls/hr IV .Q10H [facility] Last Admin: 02/25/17 13:48 Dose: 100 mls/hr Ceftriaxone Sodium 1 gm/ (Sodium Chloride) 100 mls @ 100 mls/hr IVPB BID [facility] Last Admin: 02/25/17 10:40 Dose: 100 mls/hr Ketorolac Tromethamine (Toradol) 15 mg IVP Q6 PRN PRN Reason: Pain, moderate (4-7) Morphine Sulfate (Morphine) 1 mg IVP Q4 PRN PRN Reason: Pain, severe (8-10) Ondansetron HCl (Zofran Inj) 4 mg IVP Q6H PRN PRN Reason: Nausea/Vomiting Pantoprazole Sodium (Protonix Inj) 40 mg IVP DAILY [facility] Last Admin: 02/25/17 10:40 Dose: 40 mg - Labs Labs: 02/25/17 07:37 02/25/17 07:37 PT 13.4 SECONDS (9.7-12.2) H 02/24/17 06:35 INR 1.2 02/24/17 06:35 APTT 28 SECONDS (21-34) 02/24/17 06:35 Attending/Attestation - Attestation I have personally seen and examined this patient.: Yes I have fully participated in the care of the patient.: Yes I have reviewed all pertinent clinical information, including history, physical exam and plan: Yes Notes (Text): 02/25/17 15:07 Medical attending: Patient was seen and examined by me, agrees the above note by medical director/head team physician. At this time were continue with IV antibiotics, she still has some abdominal pain. As mentioned before she is status post a recent total hysterectomy. From what I understand the patient is pending a cystoscopy sometime tomorrow in the afternoon Thank you very much, Wilmer Encarnacion
--- NOTE | 2017-02-25 07:28 | CP.PCM.PN ---
Subjective - Date & Time of Evaluation Date of Evaluation: 02/25/17 Time of Evaluation: 07:25 - Subjective Subjective: PHOTO PRINT SPECIALIST Progress Note Dr. Sneed Patient seen and examined at the bedside. No acute distress. No acute events overnight. Nursing staff reports no issues. Patient reports periumbillical and suprapubic pain, consistent with her admitting complaint, this morning. Patient has a woodruff catheter in place. Patient denies fever, chills, headache, chest pain, shortness of breath, N/V/D/C, and extremity paresthesias. Objective - Vital Signs/Intake and Output Vital Signs (last 24 hours): Temp Pulse Resp BP Pulse Ox 99.5 F 81 20 104/63 97 02/24/17 23:30 02/24/17 23:30 02/24/17 23:30 02/24/17 23:30 02/24/17 23:30 Intake and Output: 02/25/17 02/25/17 06:59 18:59 Intake Total 1600 Balance 1600 - Medications Medications: Current Medications Acetaminophen (Tylenol 325mg Tab) 650 mg PO Q6 PRN PRN Reason: Fever >100.4 F Last Admin: 02/24/17 18:05 Dose: 650 mg Acetaminophen (Tylenol 325mg Tab) 650 mg PO Q6 PRN PRN Reason: Pain, Mild (1-3) Docusate Sodium (Colace) 100 mg PO DAILY [facility] Heparin Sodium (Porcine) (Heparin) 5,000 units SC Q12 [facility] Last Admin: 02/24/17 21:03 Dose: 5,000 units Sodium Chloride (Sodium Chloride 0.9%) 1,000 mls @ 100 mls/hr IV .Q10H [facility] Last Admin: 02/25/17 02:30 Dose: 100 mls/hr Ceftriaxone Sodium 1 gm/ (Sodium Chloride) 100 mls @ 100 mls/hr IVPB BID [facility] Last Admin: 02/24/17 18:09 Dose: 100 mls/hr Ketorolac Tromethamine (Toradol) 30 mg IVP Q6 PRN PRN Reason: Pain, moderate (4-7) Morphine Sulfate (Morphine) 1 mg IVP Q4 PRN PRN Reason: Pain, severe (8-10) Ondansetron HCl (Zofran Inj) 4 mg IVP Q6H PRN PRN Reason: Nausea/Vomiting Pantoprazole Sodium (Protonix Inj) 40 mg IVP DAILY [facility] - Labs Labs: PT 13.4 SECONDS (9.7-12.2) H 02/24/17 06:35 INR 1.2 02/24/17 06:35 APTT 28 SECONDS (21-34) 02/24/17 06:35 - Constitutional Appears: Well, No Acute Distress - Head Exam Head Exam: ATRAUMATIC, NORMAL INSPECTION, NORMOCEPHALIC - Eye Exam Eye Exam: EOMI, Normal appearance Pupil Exam: NORMAL ACCOMODATION - ENT Exam ENT Exam: Mucous Membranes Moist, Normal Exam - Neck Exam Neck Exam: Full ROM, Normal Inspection. absent: Lymphadenopathy, Tenderness - Respiratory Exam Respiratory Exam: Clear to Ausculation Bilateral, NORMAL BREATHING PATTERN. absent: Chest Wall Tenderness, Decreased Breath Sounds, Rales, Rhonchi, Wheezes , Stridor - Cardiovascular Exam Cardiovascular Exam: REGULAR RHYTHM, RRR, +S1, +S2. absent: Diastolic murmur, Murmur - GI/Abdominal Exam GI & Abdominal Exam: Soft, Tenderness (suprapubic), Normal Bowel Sounds. absent : Distended, Firm, Guarding, Rigid, Rebound - Exam Additional comments: Woodruff Catheter in place - Extremities Exam Extremities Exam: Full ROM, Normal Capillary Refill, Normal Inspection. absent : Joint Swelling, Pedal Edema - Back Exam Back Exam: NORMAL INSPECTION. absent: CVA tenderness (L), CVA tenderness (R) - Neurological Exam Neurological Exam: Alert, Awake, CN II-XII Intact, Oriented x3 - Skin Skin Exam: Dry, Intact, Normal Color, Warm Assessment and Plan - Assessment and Plan (Free Text) Plan: 1.) S/P Total Abdominal Hysterectomy - POD# 21 - Due to menorrhagia on 02/04/17 - Pathology - benign - Patient is Hemodynamically stable - Patient will be NPO past midnight for OR procedure with Dr. 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 Definite communication between the left ureter ureter and vagina is not established though they are in close proximity and the most distal aspect of the left ureter is not enhanced. Mild left hydroureteronephrosis with prolonged cortical phase of enhancement on the left side. Diffuse mural thickening of urinary bladder suspicious for cystitis. Please correlate with laboratory evaluation. Woodruff catheter noted. Case Discussed with Attending Physician Dr. 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
[2017-02-25 07:59] LABS: BASO % 0.1 % (0.0-2.0); EOS # 0.1 K/uL (0.0-0.7); EOS % 0.4 % (0.0-4.0); LYMPH # 1.5 K/uL (1.0-4.3); LYMPH % 9.6 % (20.0-40.0); MEAN CELL VOLUME 88.9 fL (81.0-99.0); MEAN CORPUSCULAR HEMOGLOBIN 29.5 pg (27.0-31.0); MEAN CORPUSCULAR HGB CONC 33.3 g/dL (33.0-37.0); MEAN PLATELET VOLUME 9.1 fL (7.2-11.7); MONO # 0.6 K/uL (0.0-0.8); MONO % 4.3 % (0.0-10.0); PLATELET COUNT 159 K/uL (130-400); RED CELL DISTRIBUTION WIDTH 13.7 % (11.5-14.5); WHITE BLOOD COUNT 15.1 K/uL (4.8-10.8)
[2017-02-25 08:20] LABS: CHLORIDE 102 mmol/L (98-107)
[2017-02-25 08:21] LABS: POTASSIUM 3.7 mmol/L (3.6-5.2); SODIUM 138 mmol/L (132-148)
[2017-02-25 08:23] LABS: ALKALINE PHOSPHATASE 71 U/L (38-126); ALT/SGPT 17 U/L (9-52); AST/SGOT 15 U/L (14-36); BILIRUBIN,TOTAL 0.5 mg/dL (0.2-1.3); BLOOD UREA NITROGEN 10 mg/dL (7-17); CARBON DIOXIDE 26 mmol/L (22-30); GFR AFRICAN-AMERICAN > 60; TOTAL PROTEIN 6.9 g/dL (6.3-8.3)
[2017-02-25 08:24] LABS: CALCIUM 8.1 mg/dl (8.6-10.4); GLUCOSE,RANDOM 113 mg/dL (65-105)
[2017-02-25 09:12] LABS: NEUTROPHIL 91 % (50-75); TOTAL CELLS COUNTED 100
[2017-02-25] MEDS ORDERED: Bisacodyl 5mg EC Tab PO ONE (13:05)
[2017-02-26] MEDS: Sodium Chloride 0.9% 1,000 ML IV SCH ×3 (05:00→19:22)
[2017-02-26 08:22] LABS: BASO % 0.3 % (0.0-2.0); EOS # 0.1 K/uL (0.0-0.7); EOS % 1.1 % (0.0-4.0); HEMATOCRIT 32.7 % (34.0-47.0); LYMPH # 1.8 K/uL (1.0-4.3); LYMPH % 18.7 % (20.0-40.0); MEAN CELL VOLUME 88.5 fL (81.0-99.0); MEAN CORPUSCULAR HEMOGLOBIN 30.2 pg (27.0-31.0); MEAN CORPUSCULAR HGB CONC 34.2 g/dL (33.0-37.0); MEAN PLATELET VOLUME 8.9 fL (7.2-11.7); MONO # 0.5 K/uL (0.0-0.8); RED CELL DISTRIBUTION WIDTH 13.8 % (11.5-14.5); WHITE BLOOD COUNT 9.8 K/uL (4.8-10.8)
[2017-02-26 08:43] LABS: CHLORIDE 103 mmol/L (98-107); POTASSIUM 3.3 mmol/L (3.6-5.2); SODIUM 139 mmol/L (132-148)
[2017-02-26 08:45] LABS: ALB/GLOB RATIO 1.1 (1.0-2.1); AST/SGOT 10 U/L (14-36); BILIRUBIN,TOTAL 0.5 mg/dL (0.2-1.3); BLOOD UREA NITROGEN 5 mg/dL (7-17); CARBON DIOXIDE 23 mmol/L (22-30); GFR AFRICAN-AMERICAN > 60; TOTAL PROTEIN 6.7 g/dL (6.3-8.3)
[2017-02-26 08:46] LABS: ALKALINE PHOSPHATASE 63 U/L (38-126); ALT/SGPT 18 U/L (9-52); CALCIUM 7.6 mg/dl (8.6-10.4); GLUCOSE,RANDOM 95 mg/dL (65-105)
[2017-02-26] MEDS ORDERED: Potassium Chloride 20 mEq ER Tab PO ONE (10:00)
[2017-02-26] MEDS ORDERED: cefTRIAXone IV 1 gm in Dextros 0 ML IVPB ONE (12:31)
[2017-02-26] MEDS ORDERED: Iohexol 240 (50 ml) ONE (12:31)
[2017-02-26] MEDS ORDERED: Lidocaine 2% Jelly (Uro-Jet) ONE (13:24)
--- NOTE | 2017-02-26 13:28 | CP.PCM.PN ---
<Viktoria Dockery - Last Filed: 02/26/17 13:25> Subjective - Date & Time of Evaluation Date of Evaluation: 02/26/17 Time of Evaluation: 09:00 - Subjective Subjective: Medicine Note for Dr. Encarnacion, Patient was seen and examined at bedside. Patient reports she continues to have abdominal pain, patient instructed to page nurse when in pain to receive pain medications pending on the severity of her pain. Patient held NPO for cystoscopy at 1pm. Denied fever, chills, headache, chest pain, n/v/d/c, or urinary symptoms. Objective - Vital Signs/Intake and Output Vital Signs (last 24 hours): Temp Pulse Resp BP Pulse Ox 98.3 F 79 20 115/74 98 02/26/17 08:22 02/26/17 08:22 02/26/17 08:22 02/26/17 08:22 02/26/17 08:22 Intake and Output: 02/26/17 02/26/17 06:59 18:59 Intake Total 1900 Output Total 600 Balance 1300 - Medications Medications: Current Medications Acetaminophen (Tylenol 325mg Tab) 650 mg PO Q6 PRN PRN Reason: Fever >100.4 F Last Admin: 02/24/17 18:05 Dose: 650 mg Acetaminophen (Tylenol 325mg Tab) 650 mg PO Q6 PRN PRN Reason: Pain, Mild (1-3) Docusate Sodium (Colace) 100 mg PO DAILY [facility] Last Admin: 02/26/17 09:50 Dose: 100 mg Heparin Sodium (Porcine) (Heparin) 5,000 units SC Q12 [facility] Last Admin: 02/25/17 21:56 Dose: 5,000 units Sodium Chloride (Sodium Chloride 0.9%) 1,000 mls @ 100 mls/hr IV .Q10H [facility] Last Admin: 02/26/17 08:09 Dose: Not Given Ceftriaxone Sodium 1 gm/ (Sodium Chloride) 100 mls @ 100 mls/hr IVPB BID [facility] Last Admin: 02/26/17 10:22 Dose: 100 mls/hr Ketorolac Tromethamine (Toradol) 15 mg IVP Q6 PRN PRN Reason: Pain, moderate (4-7) Morphine Sulfate (Morphine) 1 mg IVP Q4 PRN PRN Reason: Pain, severe (8-10) Ondansetron HCl (Zofran Inj) 4 mg IVP Q6H PRN PRN Reason: Nausea/Vomiting Pantoprazole Sodium (Protonix Inj) 40 mg IVP DAILY [facility] Last Admin: 02/26/17 09:50 Dose: 40 mg - Labs Labs: 02/26/17 08:15 02/26/17 08:15 PT 13.4 SECONDS (9.7-12.2) H 02/24/17 06:35 INR 1.2 02/24/17 06:35 APTT 28 SECONDS (21-34) 02/24/17 06:35 - Constitutional Appears: No Acute Distress - Head Exam Head Exam: NORMAL INSPECTION, NORMOCEPHALIC - Respiratory Exam Respiratory Exam: Clear to Ausculation Bilateral, NORMAL BREATHING PATTERN - Cardiovascular Exam Cardiovascular Exam: REGULAR RHYTHM, RRR, +S1, +S2 - GI/Abdominal Exam GI & Abdominal Exam: Soft, Tenderness, Normal Bowel Sounds - Extremities Exam Extremities Exam: Normal Inspection. absent: Pedal Edema, Tenderness - Neurological Exam Neurological Exam: Alert, Awake, Oriented x3 - Skin Skin Exam: Dry, Intact, Normal Color, Warm Assessment and Plan - Assessment and Plan (Free Text) Plan: S/P Hysterectomy (TAHBSO) * Due to menorrhagia on 02/04/17 * Pathology - benign * CT Ab&P: Development of left ureter vaginal fistula, left hydronephrosis * Tylenol, toradol, and morphine PRN for pain * Urology consulted - Dr. Gaurav Mata - patient to be kept NPO for cystoscopy today at 1PM. UTI * UA: +LE, + Nitrates * Rocephin 1 gram IVP BID * NS @ 100cc/hr * F/U Urine Cultures: gram negative pending sensitivity Prophylaxis * GI PPX: Protonix 40mg PO daily * DVT PPX: Heparin 5000u SC Q12H * Regular (VEGAN diet) after cystoscopy DW Nahed March DO, PGY-1 <Wilmer Encarnacion - Last Filed: 02/26/17 14:44> Objective - Vital Signs/Intake and Output Vital Signs (last 24 hours): Temp Pulse Resp BP Pulse Ox 98.3 F 79 20 115/74 98 02/26/17 08:22 02/26/17 08:22 02/26/17 08:22 02/26/17 08:22 02/26/17 08:22 Intake and Output: 02/26/17 02/26/17 06:59 18:59 Intake Total 1900 0 Output Total 600 Balance 1300 0 - Medications Medications: Current Medications Acetaminophen (Tylenol 325mg Tab) 650 mg PO Q6 PRN PRN Reason: Fever >100.4 F Last Admin: 02/24/17 18:05 Dose: 650 mg Acetaminophen (Tylenol 325mg Tab) 650 mg PO Q6 PRN PRN Reason: Pain, Mild (1-3) Docusate Sodium (Colace) 100 mg PO DAILY [facility] Last Admin: 02/26/17 09:50 Dose: 100 mg Heparin Sodium (Porcine) (Heparin) 5,000 units SC Q12 [facility] Last Admin: 02/25/17 21:56 Dose: 5,000 units Sodium Chloride (Sodium Chloride 0.9%) 1,000 mls @ 100 mls/hr IV .Q10H [facility] Last Admin: 02/26/17 08:09 Dose: Not Given Ceftriaxone Sodium 1 gm/ (Sodium Chloride) 100 mls @ 100 mls/hr IVPB BID [facility] Last Admin: 02/26/17 10:22 Dose: 100 mls/hr Ketorolac Tromethamine (Toradol) 15 mg IVP Q6 PRN PRN Reason: Pain, moderate (4-7) Morphine Sulfate (Morphine) 1 mg IVP Q4 PRN PRN Reason: Pain, severe (8-10) Ondansetron HCl (Zofran Inj) 4 mg IVP Q6H PRN PRN Reason: Nausea/Vomiting Pantoprazole Sodium (Protonix Inj) 40 mg IVP DAILY [facility] Last Admin: 02/26/17 09:50 Dose: 40 mg - Labs Labs: 02/26/17 08:15 02/26/17 08:15 PT 13.4 SECONDS (9.7-12.2) H 02/24/17 06:35 INR 1.2 02/24/17 06:35 APTT 28 SECONDS (21-34) 02/24/17 06:35 Attending/Attestation - Attestation I have personally seen and examined this patient.: Yes I have fully participated in the care of the patient.: Yes I have reviewed all pertinent clinical information, including history, physical exam and plan: Yes Notes (Text): Medical attending: Patient was seen and examined by me, agree with the above note by medical device sales consultant. The patient was seen earlier in the morning. She is pending to have a cystoscopy done later on this afternoon. Her white blood cell count has decreased she remains on IV antibiotics at this time, rocpehin The preliminary cultures of the urine shows that there is +E. Coli is sensitive to Rocephin. She explains to us that the pain over the surgical site of her recent surgery is controlled at this time however pump and still operator with palpation Thank you very much, Wilmer Encarnacion
[2017-02-26] MEDS ORDERED: Midazolam 2 MG/2 ML VIAL ONE (14:00)
[2017-02-26] MEDS ORDERED: Propofol 10 mg/ml Inj (20 ML) ONE (14:00)
[2017-02-26] MEDS ORDERED: Methylene Blue 10 mg/mL(10ml) IV ONE (14:39)
[2017-02-26] MEDS ORDERED: Methylene Blue 10 mg/ml (1ml) Inj ONE (14:39)
--- NOTE | 2017-02-26 14:59 | CP.PCM.CON ---
Past Patient History - Past Medical History & Family History Past Medical History?: No - Past Social History Smoking Status: Never Smoked - MUSCULOSKELETAL/RHEUMATOLOGICAL Hx Falls: No - GENITOURINARY/GYNECOLOGICAL Hx Genitourinary Disorders: Yes Other/Comment: Fibroid Uterus - PSYCHIATRIC Hx Substance Use: No - SURGICAL HISTORY Hx Surgeries: No Hx Hysterectomy: Yes (02/04/2017) - ANESTHESIA Hx Anesthesia: Yes Hx Anesthesia Reactions: No Meds Allergies/Adverse Reactions: Allergies Allergy/AdvReac Type Severity Reaction Status Date / Time No Known Allergies Allergy Verified 02/24/17 08:57 - Medications Medications: Current Medications Acetaminophen (Tylenol 325mg Tab) 650 mg PO Q6 PRN PRN Reason: Fever >100.4 F Last Admin: 02/24/17 18:05 Dose: 650 mg Acetaminophen (Tylenol 325mg Tab) 650 mg PO Q6 PRN PRN Reason: Pain, Mild (1-3) Docusate Sodium (Colace) 100 mg PO DAILY [facility] Last Admin: 02/26/17 09:50 Dose: 100 mg Heparin Sodium (Porcine) (Heparin) 5,000 units SC Q12 [facility] Last Admin: 02/25/17 21:56 Dose: 5,000 units Sodium Chloride (Sodium Chloride 0.9%) 1,000 mls @ 100 mls/hr IV .Q10H [facility] Last Admin: 02/26/17 08:09 Dose: Not Given Ceftriaxone Sodium 1 gm/ (Sodium Chloride) 100 mls @ 100 mls/hr IVPB BID [facility] Last Admin: 02/26/17 10:22 Dose: 100 mls/hr Ketorolac Tromethamine (Toradol) 15 mg IVP Q6 PRN PRN Reason: Pain, moderate (4-7) Morphine Sulfate (Morphine) 1 mg IVP Q4 PRN PRN Reason: Pain, severe (8-10) Ondansetron HCl (Zofran Inj) 4 mg IVP Q6H PRN PRN Reason: Nausea/Vomiting Pantoprazole Sodium (Protonix Inj) 40 mg IVP DAILY [facility] Last Admin: 02/26/17 09:50 Dose: 40 mg Results - Vital Signs Recent Vital Signs: Last Vital Signs Temp 98.3 F 02/26/17 08:22 Pulse 79 02/26/17 08:22 Resp 20 02/26/17 08:22 BP 115/74 02/26/17 08:22 Pulse Ox 98 02/26/17 08:22 - Labs Result Diagrams: 02/26/17 08:15 02/26/17 08:15 Labs: Laboratory Results - last 24 hr 02/26/17 02/26/17 02/26/17 08:15 08:15 08:32 WBC 9.8 RBC 3.70 L Hgb 11.2 Hct 32.7 L MCV 88.5 MCH 30.2 MCHC 34.2 RDW 13.8 Plt Count 178 MPV 8.9 Neut % (Auto) 74.9 Lymph % (Auto) 18.7 L Saunders % (Auto) 5.0 Eos % (Auto) 1.1 Baso % (Auto) 0.3 Neut # 7.4 H Lymph # 1.8 Saunders # 0.5 Eos # 0.1 Baso # 0.0 Sodium 139 Potassium 3.3 L Chloride 103 Carbon Dioxide 23 Anion Gap 16 BUN 5 L Creatinine 0.5 L Est GFR ( Amer) > 60 Est GFR (Non-Af Amer) > 60 Random Glucose 95 Calcium 7.6 L Total Bilirubin 0.5 AST 10 L D ALT 18 Alkaline Phosphatase 63 Total Protein 6.7 Albumin 3.5 Globulin 3.2 Albumin/Globulin Ratio 1.1 Urine HCG, Qual Negative Assessment & Plan - Date & Time Date: 02/26/17 Time: 13:50
--- NOTE | 2017-02-26 15:00 | PCM.SURG1 ---
Surgeon's Initial Post Op Note - Surgeon's Notes Surgeon: Gabi QUACH Auto Body Mechanic: NONE Type of Anesthesia: General LMA Pre-Operative Diagnosis: L HYDRONEPHROSIS. INCONTINENCE. POSSIBLE URETERO- VAGINAL FISTULA Operative Findings: SAME Post-Operative Diagnosis: SAME Operation Performed: cysto,. rtg pyelogram. stent insertion. cytogram. vaginoscopy. eua Specimen/Specimens Removed: NONE Estimated Blood Loss: EBL {In ML}: 0 Blood Products Given: N/A, Whole Blood Post-Op Condition: Good Date of Surgery/Procedure: 02/26/17 Time of Surgery/Procedure: 15:00
[2017-02-26] MEDS ORDERED: Lactated Ringer's 1,000 ML IV ONE (15:02)
[2017-02-26] MEDS ORDERED: HYDROmorphone 0.5 mg/0.5 ml ISec IVP PRN (15:02)
--- NOTE | 2017-02-26 15:38 | RAD ---
HISTORY: URETERAL/VAGINAL FISTULA COMPARISON: 02/24/2017 CT abdomen and pelvis FINDINGS: BOWEL: Normal. No obstruction. No free air. BONES: Normal. OTHER FINDINGS: Satisfactory position of recently placed double-J stent catheter. IMPRESSION: Double-J stent catheter identified on the left.
--- NOTE | 2017-02-26 15:39 | RAD ---
PROCEDURE: Intraoperative Fluoroscopy. Fluoroscopy up to 1 hr. HISTORY: URETRAL/VAGINAL FISTULA FINDINGS: Fluoroscopic assistance was provided for double-J stent catheter placements. Please refer to the operative report from
[2017-02-27] MEDS: Sodium Chloride 0.9% 1,000 ML IV SCH (01:30)
[2017-02-27 06:57] VITALS: RESP 20
[2017-02-27 08:20] VITALS: BP 122/77; PULSE 56; TEMP 97.5; O2SAT 100
[2017-02-27 08:34] LABS: BASO % 0.2 % (0.0-2.0); EOS % 0.1 % (0.0-4.0); HEMATOCRIT 31.5 % (34.0-47.0); LYMPH # 1.5 K/uL (1.0-4.3); LYMPH % 17.5 % (20.0-40.0); MEAN CELL VOLUME 88.9 fL (81.0-99.0); MEAN CORPUSCULAR HEMOGLOBIN 29.8 pg (27.0-31.0); MEAN CORPUSCULAR HGB CONC 33.5 g/dL (33.0-37.0); MEAN PLATELET VOLUME 9.3 fL (7.2-11.7); MONO # 0.4 K/uL (0.0-0.8); MONO % 4.9 % (0.0-10.0); RED CELL DISTRIBUTION WIDTH 13.4 % (11.5-14.5); WHITE BLOOD COUNT 8.5 K/uL (4.8-10.8)
[2017-02-27 08:47] LABS: CHLORIDE 103 mmol/L (98-107)
[2017-02-27 08:48] LABS: POTASSIUM 3.6 mmol/L (3.6-5.2); SODIUM 138 mmol/L (132-148)
[2017-02-27 08:50] LABS: AST/SGOT 14 U/L (14-36); BILIRUBIN,TOTAL 0.5 mg/dL (0.2-1.3); BLOOD UREA NITROGEN 8 mg/dL (7-17); CARBON DIOXIDE 24 mmol/L (22-30); GFR AFRICAN-AMERICAN > 60; TOTAL PROTEIN 6.9 g/dL (6.3-8.3)
[2017-02-27 08:51] LABS: ALKALINE PHOSPHATASE 59 U/L (38-126); ALT/SGPT 17 U/L (9-52); CALCIUM 8.3 mg/dl (8.6-10.4); GLUCOSE,RANDOM 82 mg/dL (65-105)
--- NOTE | 2017-02-27 09:06 | CP.PCM.DIS ---
<Viktoria Dockery - Last Filed: 02/27/17 14:12> Provider - Provider Date of Admission: 02/24/17 11:45 Attending physician: Wilmer Encarnacion DO Time Spent in preparation of Discharge (in minutes): 35 Hospital Course - Lab Results Lab Results: Micro Results 02/24/17 13:55 Blood Blood Culture - Preliminary NO GROWTH AFTER 48 HOURS 02/24/17 Unknown Urine Urine Culture - Final Escherichia Coli Most Recent Lab Values WBC 8.5 K/uL (4.8-10.8) 02/27/17 08:26 RBC 3.55 Mil/uL (3.80-5.20) L 02/27/17 08:26 Hgb 10.6 g/dL (11.0-16.0) L 02/27/17 08:26 Hct 31.5 % (34.0-47.0) L 02/27/17 08:26 MCV 88.9 fL (81.0-99.0) 02/27/17 08:26 MCH 29.8 pg (27.0-31.0) 02/27/17 08:26 MCHC 33.5 g/dL (33.0-37.0) 02/27/17 08:26 RDW 13.4 % (11.5-14.5) 02/27/17 08:26 Plt Count 194 K/uL (130-400) 02/27/17 08:26 MPV 9.3 fL (7.2-11.7) 02/27/17 08:26 Neut % (Auto) 77.3 % (50.0-75.0) H 02/27/17 08:26 Lymph % (Auto) 17.5 % (20.0-40.0) L 02/27/17 08:26 Sherman % (Auto) 4.9 % (0.0-10.0) 02/27/17 08:26 Eos % (Auto) 0.1 % (0.0-4.0) 02/27/17 08:26 Baso % (Auto) 0.2 % (0.0-2.0) 02/27/17 08:26 Neut # 6.6 K/uL (1.8-7.0) 02/27/17 08:26 Lymph # 1.5 K/uL (1.0-4.3) 02/27/17 08:26 Sherman # 0.4 K/uL (0.0-0.8) 02/27/17 08:26 Eos # 0.0 K/uL (0.0-0.7) 02/27/17 08:26 Baso # 0.0 K/uL (0.0-0.2) 02/27/17 08:26 Neutrophils % (Manual) 91 % (50-75) H 02/25/17 07:37 Band Neutrophils % 3 % (0-2) H 02/24/17 06:35 Lymphocytes % (Manual) 5 % (20-40) L 02/25/17 07:37 Monocytes % (Manual) 4 % (0-10) 02/25/17 07:37 Platelet Estimate Normal (NORMAL) 02/25/17 07:37 RBC Morphology Normal 02/25/17 07:37 Hypochromasia (manual) Slight 02/24/17 06:35 Poikilocytosis (manual Slight 02/24/17 06:35 Anisocytosis (manual) Slight 02/24/17 06:35 PT 13.4 SECONDS (9.7-12.2) H 02/24/17 06:35 INR 1.2 02/24/17 06:35 APTT 28 SECONDS (21-34) 02/24/17 06:35 Sodium 138 mmol/L (132-148) 02/27/17 08:26 Potassium 3.6 mmol/L (3.6-5.2) 02/27/17 08:26 Chloride 103 mmol/L (98-107) 02/27/17 08:26 Carbon Dioxide 24 mmol/L (22-30) 02/27/17 08:26 Anion Gap 14 (10-20) 02/27/17 08:26 BUN 8 mg/dL (7-17) 02/27/17 08:26 Creatinine 0.5 MG/DL (0.7-1.2) L 02/27/17 08:26 Est GFR ( Amer) > 60 02/27/17 08:26 Est GFR (Non-Af Amer) > 60 02/27/17 08:26 Random Glucose 82 mg/dL (65-105) 02/27/17 08:26 Hemoglobin A1c 5.8 % (4.2-6.5) 02/25/17 07:37 Calcium 8.3 mg/dl (8.6-10.4) L 02/27/17 08:26 Total Bilirubin 0.5 mg/dL (0.2-1.3) 02/27/17 08:26 AST 14 U/L (14-36) D 02/27/17 08:26 ALT 17 U/L (9-52) 02/27/17 08:26 Alkaline Phosphatase 59 U/L (38-126) 02/27/17 08:26 Total Protein 6.9 g/dL (6.3-8.3) 02/27/17 08:26 Albumin 3.4 g/dL (3.5-5.0) L 02/27/17 08:26 Globulin 3.5 gm/dL (2.2-3.9) 02/27/17 08:26 Albumin/Globulin Ratio 1.0 (1.0-2.1) 02/27/17 08:26 Lipase 125 U/L (23-300) 02/24/17 06:35 Urine Color Rebekah (YELLOW) 02/24/17 06:33 Urine Clarity Hazy (Clear) 02/24/17 06:33 Urine pH 5.0 (5.0-8.0) 02/24/17 06:33 Ur Specific [place] 1.013 (1.003-1.030) 02/24/17 06:33 Urine Protein 2+ mg/dL (NEGATIVE) H 02/24/17 06:33 Urine Glucose (UA) Normal mg/dL (Normal) 02/24/17 06:33 Urine Ketones Negative mg/dL (NEGATIVE) 02/24/17 06:33 Urine Blood 2+ (NEGATIVE) H 02/24/17 06:33 Urine Nitrate Positive (NEGATIVE) H 02/24/17 06:33 Urine Bilirubin Negative (NEGATIVE) 02/24/17 06:33 Urine Urobilinogen Normal mg/dL (0.2-1.0) 02/24/17 06:33 Ur Leukocyte Esterase 3+ Ghislaine/uL (Negative) H 02/24/17 06:33 Urine WBC (Auto) 625 /hpf (0-5) H 02/24/17 06:33 Urine RBC (Auto) 25 /hpf (0-3) H 02/24/17 06:33 Ur Squamous Epith Cells 1 /hpf (0-5) 02/24/17 06:33 Urine Bacteria Rare (<OCC) 02/24/17 06:33 Urine HCG, Qual Negative (NEGATIVE) 02/26/17 08:32 - Hospital Course Hospital Course: Upon admission: CC: leaking urine HPI: 46F with no PMHx presents to the ED s/p hysterectomy (02/04) complaining of leaking urine. This leaking started this past Wednesday but over the next few days it became more profuse. Admitted to dysuria and fevers. Patient went to PMD and was sent to the ED for evaluation. Patient was seen by HOUSING MANAGEMENT OFFICER, Urology was consulted. Denied chills, headache, chest pain, SOB, abdominal pain, hematuria, vaginal bleeding, discharge, or n/v/d/c. PMHx: Denied PSHx: Hysterectomy Meds: Denied All: NKDA SHx: Denied tobacco, alcohol, or illicit drug use FHx: Unremarkable Throughout Hospital Course: Patient was admitted for utererovaginal fistula. Patient was evaluated by the Primary HOUSING MANAGEMENT OFFICER who performed the TAHBSO on 02/04/17. Urology was consulted and she underwent a cystoscopy and had a double J stent catheter inserted. She was observed overnight and felt well the next morning. Patient was discharged with medications and antibiotics. She was instructed to follow up with Dr. Sneed and Dr. Mata as outpatient. Patient stated she understood and agreed with the plan. This is a brief summary of the patient's hospital course. Please review EMR for full record. Discharge Exam - Head Exam Head Exam: NORMAL INSPECTION, NORMOCEPHALIC - Eye Exam Eye Exam: Normal appearance - ENT Exam ENT Exam: Mucous Membranes Moist - Respiratory Exam Respiratory Exam: NORMAL BREATHING PATTERN. absent: Decreased Breath Sounds, Wheezes - Cardiovascular Exam Cardiovascular Exam: REGULAR RHYTHM, RRR, +S1, +S2 - GI/Abdominal Exam GI & Abdominal Exam: Soft, Tenderness. absent: Distended Additional comments: Some TTP at the TAHBSO surgical site - Extremities Exam Extremities exam: normal inspection, pedal pulses present - Neurological Exam Neurological exam: Alert, Oriented x3 - Skin Skin Exam: Dry, Intact, Normal Color, Warm Discharge Plan - Follow Up Plan Condition: FAIR Disposition: HOME/ ROUTINE Instructions: Cephalexin (By mouth), Phenazopyridine (By mouth), Tamsulosin ( By mouth), Cystoscopy (DC), Cystoscopy (GEN) Additional Instructions: Patient is to continue the medications prescribed by Dr. Nati Mata as instructed. Patient is to follow up with Dr. Nati Mata this week and with Dr. Sneed. Patient can take Tylenol every 6-8 hours as needed for pain. Patient encouraged to return to the emergency room if her symptoms worsen or return. Referrals: Scooby Sneed MD [Staff Provider] - Nati Mata MD [Staff Provider] - <Wilmer Encarnacion - Last Filed: 02/28/17 08:00> Provider - Provider Date of Admission: 02/24/17 11:45 Attending physician: Wilmer Encarnacion DO Hospital Course - Lab Results Lab Results: Micro Results 02/24/17 13:55 Blood Blood Culture - Preliminary NO GROWTH AFTER 3 DAYS 02/24/17 Unknown Urine Urine Culture - Final Escherichia Coli Most Recent Lab Values WBC 8.5 K/uL (4.8-10.8) 02/27/17 08:26 RBC 3.55 Mil/uL (3.80-5.20) L 02/27/17 08:26 Hgb 10.6 g/dL (11.0-16.0) L 02/27/17 08:26 Hct 31.5 % (34.0-47.0) L 02/27/17 08:26 MCV 88.9 fL (81.0-99.0) 02/27/17 08:26 MCH 29.8 pg (27.0-31.0) 02/27/17 08:26 MCHC 33.5 g/dL (33.0-37.0) 02/27/17 08:26 RDW 13.4 % (11.5-14.5) 02/27/17 08:26 Plt Count 194 K/uL (130-400) 02/27/17 08:26 MPV 9.3 fL (7.2-11.7) 02/27/17 08:26 Neut % (Auto) 77.3 % (50.0-75.0) H 02/27/17 08:26 Lymph % (Auto) 17.5 % (20.0-40.0) L 02/27/17 08:26 Sherman % (Auto) 4.9 % (0.0-10.0) 02/27/17 08:26 Eos % (Auto) 0.1 % (0.0-4.0) 02/27/17 08:26 Baso % (Auto) 0.2 % (0.0-2.0) 02/27/17 08:26 Neut # 6.6 K/uL (1.8-7.0) 02/27/17 08:26 Lymph # 1.5 K/uL (1.0-4.3) 02/27/17 08:26 Sherman # 0.4 K/uL (0.0-0.8) 02/27/17 08:26 Eos # 0.0 K/uL (0.0-0.7) 02/27/17 08:26 Baso # 0.0 K/uL (0.0-0.2) 02/27/17 08:26 Neutrophils % (Manual) 91 % (50-75) H 02/25/17 07:37 Band Neutrophils % 3 % (0-2) H 02/24/17 06:35 Lymphocytes % (Manual) 5 % (20-40) L 02/25/17 07:37 Monocytes % (Manual) 4 % (0-10) 02/25/17 07:37 Platelet Estimate Normal (NORMAL) 02/25/17 07:37 RBC Morphology Normal 02/25/17 07:37 Hypochromasia (manual) Slight 02/24/17 06:35 Poikilocytosis (manual Slight 02/24/17 06:35 Anisocytosis (manual) Slight 02/24/17 06:35 PT 13.4 SECONDS (9.7-12.2) H 02/24/17 06:35 INR 1.2 02/24/17 06:35 APTT 28 SECONDS (21-34) 02/24/17 06:35 Sodium 138 mmol/L (132-148) 02/27/17 08:26 Potassium 3.6 mmol/L (3.6-5.2) 02/27/17 08:26 Chloride 103 mmol/L (98-107) 02/27/17 08:26 Carbon Dioxide 24 mmol/L (22-30) 02/27/17 08:26 Anion Gap 14 (10-20) 02/27/17 08:26 BUN 8 mg/dL (7-17) 02/27/17 08:26 Creatinine 0.5 MG/DL (0.7-1.2) L 02/27/17 08:26 Est GFR ( Amer) > 60 02/27/17 08:26 Est GFR (Non-Af Amer) > 60 02/27/17 08:26 Random Glucose 82 mg/dL (65-105) 02/27/17 08:26 Hemoglobin A1c 5.8 % (4.2-6.5) 02/25/17 07:37 Calcium 8.3 mg/dl (8.6-10.4) L 02/27/17 08:26 Total Bilirubin 0.5 mg/dL (0.2-1.3) 02/27/17 08:26 AST 14 U/L (14-36) D 02/27/17 08:26 ALT 17 U/L (9-52) 02/27/17 08:26 Alkaline Phosphatase 59 U/L (38-126) 02/27/17 08:26 Total Protein 6.9 g/dL (6.3-8.3) 02/27/17 08:26 Albumin 3.4 g/dL (3.5-5.0) L 02/27/17 08:26 Globulin 3.5 gm/dL (2.2-3.9) 02/27/17 08:26 Albumin/Globulin Ratio 1.0 (1.0-2.1) 02/27/17 08:26 Lipase 125 U/L (23-300) 02/24/17 06:35 Urine Color Rebekah (YELLOW) 02/24/17 06:33 Urine Clarity Hazy (Clear) 02/24/17 06:33 Urine pH 5.0 (5.0-8.0) 02/24/17 06:33 Ur Specific [place] 1.013 (1.003-1.030) 02/24/17 06:33 Urine Protein 2+ mg/dL (NEGATIVE) H 02/24/17 06:33 Urine Glucose (UA) Normal mg/dL (Normal) 02/24/17 06:33 Urine Ketones Negative mg/dL (NEGATIVE) 02/24/17 06:33 Urine Blood 2+ (NEGATIVE) H 02/24/17 06:33 Urine Nitrate Positive (NEGATIVE) H 02/24/17 06:33 Urine Bilirubin Negative (NEGATIVE) 02/24/17 06:33 Urine Urobilinogen Normal mg/dL (0.2-1.0) 02/24/17 06:33 Ur Leukocyte Esterase 3+ Ghislaine/uL (Negative) H 02/24/17 06:33 Urine WBC (Auto) 625 /hpf (0-5) H 02/24/17 06:33 Urine RBC (Auto) 25 /hpf (0-3) H 02/24/17 06:33 Ur Squamous Epith Cells 1 /hpf (0-5) 02/24/17 06:33 Urine Bacteria Rare (<OCC) 02/24/17 06:33 Urine HCG, Qual Negative (NEGATIVE) 02/26/17 08:32 Attending/Attestation - Attestation I have personally seen and examined this patient.: Yes I have fully participated in the care of the patient.: Yes I have reviewed all pertinent clinical information, including history, physical exam and plan: Yes Notes (Text): Medical Attending: Patient was seen and examined by me. Agree with the above note by the resident. As mentioned above she had developed a utererovaginal fistula. She was S/P TAHBSO on February 04. She was evaluated by urology and underwent a cystoscopy and had a double J stent catheter inserted. She did really well and understands that she needs to follow up with urologist outpatient as well thank you Wilmer Encarnacion
--- NOTE | 2017-02-28 19:30 | CON ---
DATE: 02/26/2017 Urology consultation requested by Dr. Wilmer Encarnacion. Urology consultation filled by Dr. Nati Mata. REASON FOR CONSULTATION: Urinary incontinence. 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 HISTORY OF PRESENT ILLNESS: The patient is a 46-year-old female with urinary incontinence. The patient is in otherwise good health. The patient underwent hysterectomy approximately 3 weeks ag o. The hysterectomy was performed for menometrorrhagia. The patient was found to have benign findin gs on pathology including adenomyosis. The patient is otherwise well. She previously voided with a good urinary stream and good control. S he developed urinary incontinence. She has had leakage of urine per vagina over the past several day s. The patient reports occasional flank pain. The patient had no fever until she presented to the hospital on 02/24 when she developed a fever to 10 3 degrees Fahrenheit. The patient has been treated with antibiotic therapy for urinary tract infection. She has had no fur ther fever. Patient has no history of previous urinary tract infection. No history of urolithiasis. There is no history of hematuria or dysuria. The patient previously voided with a good urinary stream and good control. She previously had noctur ia 1-2 times per night. The previous surgical history includes labor and delivery. No history of section. The patient lives with her family and sons. The patient does not smoke. There is no history of hypertension, diabetes, pneumonia, asthma, tuberculosis. The patient has been wearing pads. The patient has had urinary incontinence. She has had leakage of urine per vagina. She additionally voids with a good stream. The patient had an indwelling Snell catheter yesterday. She still had leakage of urine despite the d rainage via the Snell catheter. The catheter was subsequently removed. PHYSICAL EXAMINATION: GENERAL: The patient is well-developed, well-nourished, middle-aged female. The patient is awake an d alert. ABDOMEN: Soft, nontender, nondistended. No mass, organomegaly. There is a healed lower abdominal s car. BACK: No CVA tenderness. LABORATORY DATA: Reviewed. White blood count is 15,000. Renal function is normal. Repeat white bl ood count is 15,100. Repeat white blood count today is normal. It is decreased and normal. See trey chenova. Renal function is normal. CAT scan reveals mild left hydronephrosis. There is contrast and thus presumably urine noted within the vagina. Findings are consistent with either vesicovaginal fistula or ureterovaginal fistula. In addition, there was delayed cortical phase of the left nephrogram, consistent with obstruction. IMPRESSION: A 46-year-old female with left hydronephrosis. Possible left distal ureteral obstructio n. 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 Urinary leakage per vagina. Findings are consistent with possible vesicovaginal fistula, ureterovaginal fistula. Also possible is leakage per urethra. RECOMMENDATIONS AND PLAN: Continue antibiotic therapy. For cystoscopy and retrograde pyelogram and possible stent insertion. Further therapy to follow according to patient's clinical course. Continue antibiotic therapy. Case discussed with the patient, her family, and with patient's surgical net web developer. Nati Mata MD cc: [id number] TT: 02/28/2017 19:29:55 Confirmation # [id number] Dictation # [id number] luz
--- NOTE | 2017-02-28 20:00 | OP ---
PROCEDURE DATE: 02/26/2017 PREOPERATIVE DIAGNOSES: Urinary incontinence. 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 Possible vesicovagi nal fistula. POSTOPERATIVE DIAGNOSES: Urinary incontinence. 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 Possible vesicovag inal fistula. Cystitis. 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 PROCEDURES: Cystoscopy. Left retrograde pyelogram. Cystogram. Insertion of left ureteral stent. Vaginoscopy. Exam under anesthesia. The procedure was performed under video endoscopic control as well as under fluoroscopic control. The patient had been on antibiotic therapy. The patient was placed in the lithotomy position. Genit mustapha prepped and draped sterilely. Anesthesia was provided by the anesthesiologist via laryngeal mas k airway. A 22-Nepali cystoscope sheath was introduced with obturator. The bladder was inspected with 30-degre e and 70-degree lens. FINDINGS: There was noted to be mild bladder trabeculation. There was no bladder tumor. There was no bladder stone. There were areas of inflammation of the bladder mucosa on the right and left later al and posterior murry. The ureteral orifices were normal in position and shape. There was no stone within the bladder. There was no tumor within the bladder. There was no fistula site identified wi thin the bladder. The bladder neck was normal. The urethra was normal. There was no fistula formation within the uret hra. Occlusive tip left retrograde ureteropyelogram was performed. Iodinated contrast dye was instilled v ia cone-tipped catheter into the left ureteral orifice. Under fluoroscopic control, the ureter was visualized. There was noted to be a stricture of the ureter approximately 2 cm above the ureteral orifice. There was normal caliber below this point. There was moderate hydronephrosis above that point. There was a sharp cut off. The ureter above this point was noted to have moderate tortuosity with secondary kinking. There was moderate hydronephrosis as well. A 0.35 inch sensor guidewire was inserted into the left ureteral orifice. However, the guidewire cou ld not be negotiated past the point of obstruction. Simultaneously manipulation using an open-ended catheter and a guidewire were performed. However, th e guidewire could still not be advanced. The use of a 0.038 angle tipped Glidewire was employed. The Glidewire was able to be advanced under fluoroscopic control into the distal above the obstruction and then advanced up to the level of the k idney. The guidewire was left in place. The cystoscope was removed. An open-ended catheter was inserted over the guidewire. The guidewire was removed. A hydronephrotic drip was obtained. Iodinated contrast dye was instilled via the open-ended catheter. There was noted to be moderate hyd roureteronephrosis with moderate caliectasis. A sensor guidewire was reinserted into the open-ended catheter. A 6-Nepali multi-length stent was in serted over the guidewire. Proper stent position within the bladder and within the kidney was confir med with both fluoroscopy and endoscopy. The guidewire was removed. The stent was left in place. The bladder was reinspected and confirmed the above findings. Iodinated contrast had been instilled via the cystoscope into the bladder. There was no fistula iden tified. The Snell catheter was inserted per urethra. Methylene blue was inserted into the bladder. The bladder was further filled. No blue was noted per vagina both on vaginal inspection as well as on vaginoscopy. Vaginoscopy was performed with the cys toscope and a 30-degree lens. The proximal vaginal vault was identified. There was no fistula identified. However, the proximal vagina and vaginal stump was identified. There were multiple sut ures present. There was some inflammation present. There was no blue identified. The ureteral sten t could not be identified. Bimanual examination was performed. There was no abnormal pelvic mass, fixation or induration. Luann bimanual examination was performed. There was no proximal induration or fixation. There was no b leeding noted. 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 Left distal ureteral obstruction. The Snell catheter was removed. Lidocaine jelly was instilled per urethra. The patient tolerated th e procedure without complication. Nati Mata MD cc: [id number] TT: 02/28/2017 20:00:29 clementine
== END 2017-02-27 12:50 | disposition home or self-care (01) | DRG 320 ==
LOC: C.ER 05:57 → C.9OBSV 09:00 → C.9E 11:45 → OBSVTOIN 11:45 → C.3T 12:09
PROVIDERS: ADMIT Hospitalist; ATTEND Hospitalist
PROC: 0UJH8ZZ Inspection of Vagina and Cul-de-sac, Via Natural or Artificial Opening Endoscopic (ICD-10-PCS; 2017-02-26)
PROC: 0T778DZ Dilation of Left Ureter with Intraluminal Device, Via Natural or Artificial Opening Endoscopic (ICD-10-PCS; 2017-02-26)
PROC: BT1F1ZZ Fluoroscopy of Left Kidney, Ureter and Bladder using Low Osmolar Contrast (ICD-10-PCS; principal; 2017-02-26 13:00)
DX: N30.81 Other cystitis with hematuria (principal); N13.30 Unspecified hydronephrosis; N32.89 Other specified disorders of bladder; N80.0 Endometriosis of uterus; N92.1 Excessive and frequent menstruation with irregular cycle; N82.8 Other female genital tract fistulae; N39.498 Other specified urinary incontinence

== ENCOUNTER 2017-05-07 08:14 | Day surgery (SDC) | payer OTHER ==
[2017-05-03 11:11] VITALS: BMI 21.3
[2017-05-07 08:42] VITALS: O2SAT 100
[2017-05-07] MEDS ORDERED: cefTRIAXone IV 1 gm in Dextros 50 ML IVPB ONE (11:15)
[2017-05-07] MEDS ORDERED: Lactated Ringer's 1,000 ML IV ONE (11:15)
[2017-05-07] MEDS ORDERED: Iohexol 240 (50 ml) ONE (11:15)
[2017-05-07] MEDS ORDERED: Lidocaine 2% Jelly (Uro-Jet) ONE (11:15)
[2017-05-07] MEDS ORDERED: Propofol 10 mg/ml Inj (20 ML) ONE (11:24)
[2017-05-07] MEDS ORDERED: Midazolam 2 MG/2 ML VIAL ONE (11:24)
[2017-05-07] MEDS ORDERED: HYDROmorphone 0.5 mg/0.5 ml ISec IVP PRN (12:00)
--- NOTE | 2017-05-07 12:40 | RAD ---
HISTORY: HX. OF LT. HYDRONEPHROSIS COMPARISON: Left abdominal radiograph performed 02/26/17 FINDINGS: Left ureteral stent. Nonobstructive bowel gas pattern. Mild constipation. 10 mm pelvic calcification re-identified. Degenerative changes. IMPRESSION: Left ureteral stent.
[2017-05-07 13:12] VITALS: BP 110/60; PULSE 65; RESP 18; TEMP 97
--- NOTE | 2017-05-07 15:18 | RAD ---
PROCEDURE: Intraoperative fluoroscopy HISTORY: LT. HYDRONEPHROSIS COMPARISON: Not available TECHNIQUE: Intraoperative fluoroscopy was provided for removal of left ureteral stent and retrograde left pyeloureterography. Total time of fluoroscopy was 16.7 seconds. FINDINGS: Multiple fluoroscopic spot films are submitted. Films are on file for review. IMPRESSION: Fluoroscopy provided
--- NOTE | 2017-05-07 23:39 | PCM.SURG1 ---
Surgeon's Initial Post Op Note - Surgeon's Notes Surgeon: jimy christina Continuous Dryout Operator: none Type of Anesthesia: IV Sedation Pre-Operative Diagnosis: L hydronephrosis. L uretero-vaginal fistua Operative Findings: same. No hydronephrosis. No exrtavasation Post-Operative Diagnosis: Same. no obstruction. No extravastion Operation Performed: cysto. removal of L ureteral stent. L rtg pyelogram Specimen/Specimens Removed: urine Estimated Blood Loss: EBL {In ML}: 0 Blood Products Given: N/A Drains Used: No Drains Post-Op Condition: Good Date of Surgery/Procedure: 05/07/17 Time of Surgery/Procedure: 11:55
--- NOTE | 2017-05-10 11:15 | OP ---
PREOPERATIVE DIAGNOSES: History of ureterovaginal fistula, history of ureteral stricture and history of left hydronephrosis. POSTOPERATIVE DIAGNOSES: History of ureterovaginal fistula, history of ureteral stricture and history of left hydronephrosis. No evidence of stricture or hydronephrosis. PROCEDURE: Cystoscopy, removal of left ureteral stent and left retrograde pyelogram. OPERATING SURGEON: Dr. Nati Mata. DESCRIPTION OF PROCEDURE: The patient was placed in lithotomy position. Genitalia prepped and draped sterilely. Anesthesia was applied by the anesthesiologist. Perioperative antibiotics were administered. A 22-Turkish cystoscope sheath was introduced with obturator. The bladder was inspected. Urine from the bladder was sent back for urologic examination. *------* adjacent to the ureteral stent. There was no evidence of extravasation. There was no evidence of hydronephrosis. The ureteral stent was removed. Further injection studies were performed. Again, there was noted no evidence of obstruction within the ureter. There was no stricture. There was no extravasation. There was no *------*. The stent was removed. Post drainage film was obtained as well. The bladder was reinspected. There were no other abnormal findings. The bladder was then drained. Cystoscope sheath was removed. The patient tolerated the procedure without complications. Nati Mata MD cc: Scooby Sneed MD
== END 2017-05-07 13:21 | disposition home or self-care (01) ==
LOC: C.SDS 08:14
PROVIDERS: ATTEND Urology
DX: Z46.6 Encounter for fitting and adjustment of urinary device (principal)
CPT/HCPCS: 52310; 74000; 76000; 87086; J0696; J7120; Q9966